=== PATIENT | male | born 1940 | race Caucasian/White ===

== ENCOUNTER → 2018-07-13 | Outpatient (CLI) | payer MEDICARE, BC ==
[~2018-07-13] MED LIST: ALTACE 10MG TAB10 MG PO; AMOXICILLIN 8751 TAB PO; ASPIRIN 81M81 MG/TA2 PO; BETAPACE 80MG80 MG PO; CARDIZEM CD 18180 MG PO; COMBIGAN 0.2%-0.5 ML OD; ELIQUIS 5MG PO; FLONASEALLERGY NS; HCTZ 25MG TAB25 MG PO; HCTZ12.5TAB PO; LIPITOR 40MG TA40 MG PO; XALATAN EYE DROPS OD
== END ==
LOC: COL.RAD 13:47
DX: I65.23 Occlusion and stenosis of bilateral carotid arteries (principal); I70.0 Atherosclerosis of aorta
CPT/HCPCS: Q9967

== ENCOUNTER → 2018-11-22 | Outpatient (CLI) | payer MEDICARE, BC ==
[2018-11-22 12:31] LABS: CALCIUM 8.7 mg/dL (8.4-10.2); CREATININE, serum 0.68 (0.66-1.25); POTASSIUM 4.7 mmol/L (3.4-5.0)
== END ==
LOC: COL.LAB 12:00
PROVIDERS: Internal Medicine
DX: I10 Essential (primary) hypertension (principal)

== ENCOUNTER → 2018-12-06 | Outpatient (CLI) | payer MEDICARE, BC ==
[2018-12-06 13:09] LABS: HEMOGLOBIN 12.6 g/dl (13.5-18.0); MEAN CELL VOLUME 92 fl (80.0-100.0); MEAN CORPUSCULAR HEMOGLOBIN 30 pg (27.0-31.0); MEAN CORPUSCULAR HGB CONC 32 g/dl (33.0-37.0); MEAN PLATELET VOLUME 9.2 fl (7.4-10.4); PLATELET COUNT 702 K/mm3 (130-400); RED BLOOD COUNT 4.25 M/mm3 (4.20-5.60); REDCELL DISTRIBUTION WIDTH-CV 14.8 % (11.5-14.5)
[2018-12-06 13:34] LABS: CALCIUM 8.9 mg/dL (8.4-10.2); CREATININE, serum 0.64 (0.66-1.25); POTASSIUM 5.6 mmol/L (3.4-5.0)
[2018-12-06 13:52] LABS: BAND 2 % (0-10); EOSINOPHIL 6 % (0-4); LYMPHOCYTE 33 % (20.0-51.0); NEUTROPHILS 51 % (42.0-75.2); PLATELET ESTIMATE INCREASED (NORMAL); SCHISTOCYTES 1+
[2018-12-07 01:24] LABS: FOLATE (FOLIC ACID) 5.9 ng/mL (7.0-31.4)
== END ==
LOC: COL.LAB 12:15
PROVIDERS: Internal Medicine
DX: D72.820 Lymphocytosis (symptomatic) (principal); D53.9 Nutritional anemia, unspecified; I10 Essential (primary) hypertension

== ENCOUNTER → 2018-12-12 | Outpatient (CLI) | payer MEDICARE, BC | LOC: COL.RAD 10:19 | DX: D72.820 Lymphocytosis (symptomatic) (principal); K44.9 Diaphragmatic hernia without obstruction or gangrene; Z90.81 Acquired absence of spleen; K57.30 Diverticulosis of large intestine without perforation or abscess without bleeding | CPT/HCPCS: Q9967 ==

== ENCOUNTER → 2019-01-25 | Outpatient (CLI) | payer MEDICARE, BC ==
[2019-01-25 13:18] LABS: CALCIUM 8.8 mg/dL (8.4-10.2); CREATININE, serum 0.67 (0.66-1.25); POTASSIUM 4.6 mmol/L (3.4-5.0)
== END ==
LOC: COL.LAB 12:32
PROVIDERS: Internal Medicine
DX: I10 Essential (primary) hypertension (principal)

== ENCOUNTER 2021-02-22 09:25 | Emergency (ER) | payer MEDICARE, BC ==
[~2021-02-22] VITALS: Ht 182.9 cm; Wt 95.5 kg
[2021-02-22 09:29] VITALS: TEMP 98.1
[2021-02-22 10:45] VITALS: BP 208/94; PULSE 61
== END 2021-02-22 10:45 | disposition home or self-care (01) ==
LOC: COL.ER 09:25
DX: R41.0 Disorientation, unspecified (principal); I10 Essential (primary) hypertension; E78.5 Hyperlipidemia, unspecified; I48.91 Unspecified atrial fibrillation; Z79.01 Long term (current) use of anticoagulants; Z86.73 Personal history of transient ischemic attack (TIA), and cerebral infarction without residual deficits; Z87.891 Personal history of nicotine dependence; Z79.899 Other long term (current) drug therapy; W19.XXXA Unspecified fall, initial encounter

== ENCOUNTER 2023-02-09 15:26 | Emergency (ER) | payer MEDICARE, BC ==
[~2023-02-09] VITALS: Ht 182.9 cm; Wt 99.1 kg
[2023-02-09 15:30] VITALS: TEMP 99.8
[2023-02-09 15:42] LABS: COLLECTION METHOD CLEAN CATCH
[2023-02-09 15:56] LABS: PH 5.5 (5.0-8.5); URINE APPEARANCE Clear (CLEAR/HAZY); URINE BLOOD Negative (NEGATIVE); URINE COLOR Yellow (YELLOW); URINE GLUCOSE Negative (NEGATIVE); URINE KETONE 1+ (NEGATIVE); URINE NITRATE Negative (NEGATIVE); URINE PROTEIN(semi-quant) 2+ (NEGATIVE)
[2023-02-09 16:06] LABS: HEMATOCRIT 43.4 % (42.0-52.0); HEMOGLOBIN 14.9 g/dl (13.5-18.0); MEAN CELL VOLUME 88 fl (80.0-100.0); MEAN CORPUSCULAR HEMOGLOBIN 30 pg (27-31); MEAN CORPUSCULAR HGB CONC 34 g/dl (33.0-37.0); MEAN PLATELET VOLUME 10.1 fl (7.4-10.4); PLATELET COUNT 320 K/mm3 (130-400); RED BLOOD COUNT 4.96 M/mm3 (4.20-5.60); REDCELL DISTRIBUTION WIDTH-CV 15.9 % (11.5-14.5)
[2023-02-09 16:17] LABS: MUCOUS Present (NOT PRESENT); SQUAMOUS EPITHELIAL 0-2 /hpf (0-10); URINE BACTERIA Rare /hpf (NONE SEEN); URINE RBC 0-2 /hpf (0-2)
[2023-02-09 16:24] LABS: ALBUMIN 3.3 gm/dL (3.4-4.8); BILIRUBIN,TOTAL 1.5 mg/dL (0.2-1.2); CALCIUM 8.7 mg/dL (8.4-10.2); CREATININE, serum 0.92 mg/dL (0.72-1.25); POTASSIUM 4.4 mmol/L (3.5-4.5); TOTAL PROTEIN 6.6 gm/dL (6.2-8.1)
[2023-02-09 16:32] LABS: TROPONIN-I 0.03 ng/mL (0.00-0.033)
[2023-02-09 16:54] LABS: BAND 3 % (0-10); BASOPHIL 1 % (0-2); LYMPHOCYTE 19 % (20.0-51.0); NEUTROPHILS 56 % (42.0-75.2); PLATELET ESTIMATE NORMAL (NORMAL)
[2023-02-09 17:21] VITALS: BP 164/73; PULSE 72
== END 2023-02-09 17:22 | disposition home or self-care (01) ==
LOC: COL.ER 15:26
PROVIDERS: Emergency Medicine
DX: U07.1 COVID-19 (principal); I48.91 Unspecified atrial fibrillation; Z28.310 Unvaccinated for COVID-19; Z79.899 Other long term (current) drug therapy; Z79.01 Long term (current) use of anticoagulants